=== PATIENT | female | born 1985 | race African-American/Black ===

== ENCOUNTER 2017-01-04 19:35 | Emergency (ER) | payer BC, OTHER ==
[~2017-01-04] VITALS: Ht 172.7 cm; Wt 101.2 kg
[~2017-01-04 19:35] MED LIST: ALBUTEROL INHAL17 GM IH; BACTRIM DS TAB1 EACH PO; CEPHALEXIN; FLEXERIL PO; MEDROLDOSEPACK PO; NOHOMEMEDICATIONS; NORCO 5-325 TA1 EACH PO; ULTRAM 50MG TAB50 MG PO; VISTARIL OR; [UNRECOGNIZED DRUG - REMARK]; [UNRECOGNIZED DRUG - REMARK]
[2017-01-04 19:38] VITALS: BP 121/73
[2017-01-04] MEDS ORDERED: MIRALAX17 GM PO (20:09)
[2017-01-04] MEDS ORDERED: SENNA S TABLET1 EACH PO (20:09)
[2017-01-04] MEDS ORDERED: PREPARATION H O28 GM RECTAL (20:09)
== END 2017-01-04 20:28 | disposition home or self-care (01) ==
LOC: ER 19:35
DX: K64.9 Unspecified hemorrhoids (principal)

== ENCOUNTER 2019-02-23 15:26 | Emergency (ER) | payer OTHER ==
[~2019-02-23] VITALS: Ht 172.7 cm; Wt 104.3 kg
[~2019-02-23 15:26] MED LIST changes: +MIRALAX17 GM PO; +PREPARATION H O28 GM RECTAL; +SENNA S TABLET1 EACH PO
[2019-02-23 15:46] LABS: URINE BILIRUBIN NEGATIVE (Negative); URINE BLOOD NEGATIVE (Negative); URINE CLARITY CLEAR; URINE COLOR YELLOW; URINE GLUCOSE-RANDOM* NEGATIVE (Negative); URINE KETONES NEGATIVE (Negative); URINE LEUKOCYTES-REFLEX NEGATIVE (Negative); URINE NITRITE-REFLEX NEGATIVE (Negative); URINE PROTEIN (DIPSTICK) NEGATIVE (Negative); URINE SPECIFIC GRAVITY >= 1.030 (1.005-1.035); URINE UROBILINOGEN 0.2 E.U./dl (0.2-1.0)
[2019-02-23 15:58] LABS: ABSOLUTE NEUTROPHILS 3.2 thou/uL (1.4-8.2); BASOPHILS 0.9 % (0.0-2.0); EOSINOPHILS 0.3 % (0.0-3.0); HEMATOCRIT 30.6 % (37.0-47.0); HEMOGLOBIN 9.5 gm/dL (12.0-15.0); LYMPHOCYTES 43.7 % (24.0-44.0); MCV 74.3 fL (80.0-100.0); MONOCYTES 7.9 % (1.0-8.0); PLATELET COUNT 357 thou/uL (150-400); POLYS 47.2 % (36.0-66.0); RBC 4.12 mil/uL (4.20-5.00); RDW 17.9 % (10.5-14.5); WBC 6.9 thou/uL (4.0-11.0)
[2019-02-23 16:05] LABS: CALCIUM 9.6 mg/dL (8.5-10.1); POTASSIUM 4.1 mmol/L (3.5-5.1)
[2019-02-23 16:54] LABS: ANISOCYTOSIS 1+; MICROCYTES 1+
[2019-02-23] MEDS ORDERED: DEPAKOTE ER500 M1 PO (19:00)
[2019-02-23 19:27] VITALS: BP 110/69
== END 2019-02-23 19:28 | disposition home or self-care (01) ==
LOC: ER 15:26
PROVIDERS: Nurse Practitioner Family
DX: R51 Headache (principal)